=== PATIENT | female | born 1995 | race Asian ===

== ENCOUNTER → 2017-11-22 | Outpatient (CLI) | payer OTHER ==
[2017-11-22 12:35] LABS: BASO % 0.1 %; BASO ABS # 0.01 K/uL (0-0.2); EOS % 1.3 %; EOS ABS # 0.11 K/uL (0-0.5); HEMATOCRIT 33.2 % (37-47); IG# 0.03 K/uL (0.00-0.02); LYMPH % 19.1 %; LYMPH ABS # 1.57 K/uL (1.2-3.4); MEAN CORPUSCULAR HEMOGLOBIN 29.8 pg (25-34); MEAN CORPUSCULAR HGB CONC 33.1 g/dl (32-36); MEAN PLATELET VOLUME 12.3 fL (7.4-10.4); MONO % 6.1 %; PLATELET COUNT 190 K/uL (130-400); RED CELL DISTRIBUTION WIDTH CV 12.6 % (11.5-14.5); RED CELL DISTRIBUTION WIDTH SD 40.9 fL (36.4-46.3); WHITE BLOOD COUNT 8.22 K/uL (4.8-10.8)
--- NOTE | 2017-12-13 11:16 | CODING QUERY NO DIAGNOSIS ---
TREATMENT RENDERED WITHOUT A DIAGNOSIS To promote full compliance with coding requirements relating to patient care, physician participation is requested in all cases of administrative asst uncertainty. Please assist us with providing a diagnosis/symptom for the test(s) below: A diagnosis/symptom was not documented on your Order. A valid diagnosis/symptom is required to bill all insurances. Please remember that we are unable to code a diagnosis of rule out, probable, possible, questionable, or suspected. Tests that require a diagnosis: DOS: 11/22/17 * TYPE & SCREEN PROVUE DIAGNOSIS: * CBC W/ AUTO DIFF DIAGNOSIS: * HEPATITIS B SUFTFACE ANTIGEN DIAGNOSIS: * HIV 4THGEN (HIV 1,2 AB+p24 AG) DIAGNOSIS: * RAPID PLASMA REAGIN DIAGNOSIS: * RUBELLA SCREEN IgG DIAGNOSIS: Provider Signature: Date: Thank you Radha Nieto [facility] [employer] Once completed, please kindly fax back to [phone] For questions please call [phone]
== END | disposition home or self-care (01) ==
LOC: C.LAB 09:14
PROVIDERS: ATTEND Obstetrics & Gynecology
DX: O09.92 Supervision of high risk pregnancy, unspecified, second trimester (principal); Z3A.00 Weeks of gestation of pregnancy not specified; O44.02 Complete placenta previa NOS or without hemorrhage, second trimester